=== PATIENT | female | born 1975 | race Caucasian/White ===

== ENCOUNTER 2017-01-04 16:26 | Emergency (ER) | payer BC ==
[~2017-01-04] VITALS: Ht 154.9 cm; Wt 60.0 kg
[2017-01-04 16:28] VITALS: BP 129/79; PULSE 104; RESP 20; TEMP 97.9; O2SAT 98
[2017-01-04] MEDS ORDERED: ADDE30XR PO (17:43)
[2017-01-04] MEDS ORDERED: ADDE20 PO (17:43)
--- NOTE | 2017-01-04 17:48 | PD ---
HPI Chief Complaint: Medication Refill Request Time Seen by Provider: 17:46 Travel History International Travel<30 days: No Contact w/Intl Traveler<30days: No Traveled to known affect area: No History of Present Illness HPI 41-year-old female presents to emergency department requesting a refill on Adderall for her narcolepsy. She is here from [place] for family emergency and only has enough medication to get her through today. She said she came down here emergently as her [id number] had a stroke. She has tried getting her medications refilled at urgent care centers with no success. She has no emergent medical complaints. No known allergies. No other modifying factors or associated signs and symptoms. PFSH Past Medical History Diminished Hearing: No Respiratory: Yes (ASTHMA) Tetanus Vaccination: Unknown Influenza Vaccination: No ?: Not Social History Alcohol Use: No Tobacco Use: No Substance Use: No Allergies-Medications (Allergen,Severity, Reaction): Coded Allergies: No Known Allergies (Unverified , 01/04/17) Reported Meds & Prescriptions Reported Meds & Active Scripts Active Adderall (Amphetamine-Dextroamphetamine) 20 Mg Tab 20 Mg PO BID 5 Days Avoid late evening doses. Space doses at least 4 to 6 hours if more than once/day dosing. Adderall Xr 24 HR (Amphetamine/Dextroamphetamine) 30 Mg Cap 30 Mg PO BID 5 Days Once daily in the morning. Review of Systems Except as stated in HPI: all other systems reviewed are Neg Physical Exam Narrative GENERAL: Well-nourished, well-developed female patient, in no acute distress SKIN: Warm and dry. HEAD: Atraumatic. Normocephalic. EYES: Pupils equal and round. No scleral icterus. No injection or drainage. ENT: Mucosa pink and moist. Airway patent. NECK: Trachea midline. CARDIOVASCULAR: Regular rate. RESPIRATORY: No accessory muscle use. GASTROINTESTINAL: Obese. MUSCULOSKELETAL: No obvious deformities. No clubbing. No cyanosis. No edema. NEUROLOGICAL: Awake and alert. Oriented 3. No obvious cranial nerve deficits. Motor grossly within normal limits. Normal speech. PSYCHIATRIC: Appropriate mood and affect; insight and judgment normal. Data Data Last Documented VS Vital Signs Date Time Temp Pulse Resp B/P Pulse Ox O2 Delivery O2 Flow Rate FiO2 01/04/17 16:28 97.9 104 20 129/79 98 Room Air MDM Medical Decision Making Medical Screen Exam Complete: Yes Emergency Medical Condition: Yes Medical Record Reviewed: Yes Differential Diagnosis Medication refill, narcolepsy, medical clearance Narrative Course 41-year-old female requesting medication refill on Adderall for narcolepsy. She is down here on family emergency and has enough to get her through today. He spoke with Dr. Steward and she agrees to fill the prescription for 5 days. Adderall prescriptions provided. Patient verbalizes understanding and agreement with treatment plan. Patient is medically cleared and stable for discharge. Discussed reasons to return to the emergency department. Instructed patient to follow up with primary care provider. Patient agrees with treatment plan. The patients vital signs are stable and the patient is stable for outpatient follow-up and treatment. Patient discharged home, stable and in no acute distress. Diagnosis Primary Impression: Encounter for medication refill Referrals: Primary Care Physician Patient Instructions: General Instructions, Medication Refill, ED Additional Instructions: Follow-up with primary care provider Return to the emergency department immediately with worsening symptoms Med/Other Pt SpecificInfo: Prescription(s) given Scripts Amphetamine-Dextroamphetamine (Adderall)20 Mg Tab20 Mg PO BID 5 Days Ref 0 Avoid late evening doses. Space doses at least 4 to 6 hours if more than once/day dosing. Prov:Sagar Payne MD 01/04/17 Amphetamine-Dextroamphetamine ER 24 HR (Adderall Xr 24 HR)30 Mg Cap30 Mg PO BID 5 Days Ref 0 Once daily in the morning. Prov:Sagar Payne MD 01/04/17 Disposition: 01 DISCHARGE HOME Condition: Stable Olga Cardenas January 04, 2017 17:48
== END 2017-01-04 17:53 | disposition home or self-care (01) ==
LOC: NEPK 16:26
DX: G47.419 Narcolepsy without cataplexy (principal); Z76.0 Encounter for issue of repeat prescription
CPT/HCPCS: 99281